=== PATIENT | female | born 1980 | race Caucasian/White ===

== ENCOUNTER 2024-07-19 10:19 | Emergency (ER) | payer OTHER, SELFPAY ==
--- NOTE | ~2024-07-19 | CT_ITS ---
EXAMINATION: CT SOFT TISSUE NECK WITH CONTRAST CLINICAL INFORMATION: Concern for right neck abscess. Pain. COMPARISON: None available. TECHNIQUE: Following the intravenous administration of 100 mL of Omnipaque 350 intravenous contrast, helical imaging was performed in the axial plane with generation of coronal and sagittal reformatted images. This CT examination was performed using dose optimization techniques as appropriate, variously including the following: *Automated exposure control *Adjustment of mA and/or kV according to patient size (this includes techniques or standardized protocols for targeted exams where dose is matched to indication/reason for exam; i.e. extremities or head) *Use of iterative reconstruction technique FINDINGS: Lymph Nodes: -Nonpathologically enlarged likely reactive right level II and V lymph nodes. Carotid Sheath Structures: -Normal. Salivary Glands: -Normal. Mucosal Space: -Subtle peritonsillar crypt abscess on the right measuring approximately 8 x 6 x 9mm (series 4, image 22; series 6, image 36). There is enlargement of the right palatine tonsil and mild thickening of the right hypopharynx at this level. -Left pontine tonsil is normal in size and demonstrates a tonsillith. -No additional mucosal space abnormalities. The epiglottis and aryepiglottic folds, larynx, true vocal cords, and subglottic trachea appear normal. Visceral Space: -Thyroid gland: Diffusely enlarged and heterogeneous. -Visceral space otherwise normal. Retropharangeal Space: - Normal. Parapharyngeal Fat Planes: -Normal. Sail Repair Person Spaces: -Normal. Imaged Intracranial Contents: -No mass effect, edema, or abnormal enhancement. Cortical and dural venous sinuses are patent. The skull base is normal. Globes and Orbits: -Normal. Paranasal Sinuses/Mastoids/Tympanic Spaces: -Diffuse opacification of the paranasal sinuses with sparing of the left frontal sinus, findings in keeping with acute sinusitis in the appropriate clinical setting. Lung Apices and Superior Mediastinal Structures: -Imaged lung apices are clear and superior mediastinal structures are normal. Bony Structures: -No suspicious bone lesions. No fractures. -Normal TM joints. -There is reversal of the normal cervical lordosis which is nonspecific. Other: -partially imaged breast implants. CT/CT soft tissue neck w IV con IMPRESSION: 1. 8 x 6 x 9 mm keren-tonsillar crypt abscess on the right, with mild edema of the right hypopharynx at this level. 2. Pansinus opacification with sparing of the left frontal sinus. These findings likely represent acute pansinusitis in the appropriate clinical setting. 3. Reactive-appearing right level II and level V lymph nodes. 4. Diffuse enlargement and heterogeneity of the thyroid gland. Electronically signed by: Ok Gaitan MD 07/19/2024 04:39 PM [facility] [place]
--- NOTE | ~2024-07-19 | XR_ITS ---
EXAMINATION: XR CHEST CLINICAL INFORMATION: cough COMPARISON: None available. TECHNIQUE: 2 views of the chest were obtained. FINDINGS: No significant abnormality is noted involving the heart, lungs, mediastinum, bony thorax or soft tissues. XR/XR chest 2V IMPRESSION: Unremarkable chest examination. Electronically signed by: Aime Dixon MD 07/19/2024 12:15 PM [facility] [place]
[2024-07-19 11:19] VITALS: BP 161/86; PULSE 92; RESP 18; TEMP 36.8; O2SAT 97; BMI 24.6
--- NOTE | 2024-07-19 11:21 | ED_ITS ---
HPI - General Adult General Chief complaint: Upper Respiratory Symptoms Stated complaint: Cyst in R Side Throat Area Time Seen by Provider: 07/19/24 14:50 Source: patient Mode of arrival: ambulatory Limitations: no limitations History of Present Illness ED Provider: Jemma Lamar PA-C HPI narrative: 43 y/o female with PMH of neck goiter and chronic sinus infection presents with a mass around the right tonsil. States she first noted the mass about 1 1/2 weeks ago. Reports that during coughing episode this morning she noticed blood and pus. States she visualized the area after the coughing episode ceased and noted it to be erythematous. States she has sour, unpleasant taste in her mouth currently. Denies any pain or discomfort in the area. Endorses sinus pain and pressure for the past 1.5 months, noting she was prescribed antibiotics for the around 2023 which provided no relief of her sinus congestion. Denies fever/chills, sore throat, nausea, SOB, chest pain, abdominal pain, diarrhea/constipation. Denies difficult or painful swallowing. Relieving factors: none Exacerbating factors: none Associated symptoms: denies other symptoms Treatments prior to arrival: none Related Data Previous Rx's ?Medication ?Instructions ?Recorded clindamycin HCl 300 mg capsule 300 mg PO TID 7 days #21 caps 07/19/24 Allergies Allergy/AdvReac Type Severity Reaction Status Date / Time amoxicillin [AMOXICILLIN] Allergy Unknown ANAPHYLAXIS Verified 07/19/24 11:21 Review of Systems 2 Constitutional: Constitutional: Reports no additional constitutional complaints, Denies chills, Denies fever(s) and Denies night sweats Eyes: Eyes: Reports no additional eye complaints, Denies blurry vision, Denies change in vision, Denies diplopia, Denies eye discharge, Denies loss of vision and Denies eye pain ENT: Denies dizziness, Reports nasal discharge, Reports sinus pain, Reports sinus pressure and Denies sore throat Comments: coughing blood/pus from throat Cardiovascular: Cardiovascular: Reports no additional cardiovascular complaints, Denies chest pain, Denies lightheadedness, Denies Loss of Consciousness and Denies dyspnea Respiratory: Respiratory: Reports no additional respiratory complaints and Denies dyspnea Gastrointestinal: Gastrointestinal: Reports no additional gastrointestinal complaints, Denies abdominal pain, Denies melena, Denies hematochezia, Denies change in bowel habits and Denies change in stool character Genitourinary: Genitourinary: Denies hematuria, Denies urinary frequency, Denies dysuria, Denies urinary incontinence, Denies urinary hesitancy and Denies urinary urgency Musculoskeletal: Musculoskeletal: Reports no additional musculoskeletal complaints, Denies numbness and Denies tingling Neurologic: Denies dizziness, Denies loss of vision, Denies numbness and Denies tingling Psychiatric: Psychiatric: Reports no additional psychiatric complaints Endocrine: Endocrine: Reports no additional endocrine complaints Hematologic/Lymphatic: Hematologic/Lymphatic: Reports no additional hematologic/lymphatic complaints Allergic/Immunologic: Allergic/Immunologic: Reports no additional allergic/immunologic complaints [facility] Past Medical History Attestation statement: The following information was validated with the patient. Source: old records reviewed and nursing notes reviewed Social History Social History Advance Directives: No Advance Directives Information Provided: Yes Do you have a plan to hurt others: No Plan Physical Exam ED Vital Signs: Vital Signs - 24 hr 07/19/24 11:19 Temperature 98.2 F Pulse Rate 92 Respiratory Rate 18 Blood Pressure 161/86 H Pulse Oximetry 97 Oxygen Delivery Method Room Air BMI result Body Mass Index 24.6 Const General: cooperative, no acute distress, alert and awake Nutritional Appearance: well nourished Orientation/consciousness: patient oriented x3 Limitations: no limitations HENMT Head: Yes normal to inspection and Yes atraumatic Ears: hearing grossly normal bilaterally and external ears normal General nose exam: Normal external nose present, no nasal discharge noted and no epistaxis Face and sinus: Yes normal facial exam, No abrasion and No laceration Mouth: Normal oral and palatal mucosa present, no drooling and no muffled voice Mouth/tongue images: 2 1. small open area actively draining Throat: Yes uvula midline and Yes abnormal tonsil Eyes General: appearance normal, both eyes and all related structures Periorbital: periorbital findings normal Eyelids: Yes eyelids normal Conjunctivae: conjunctivae normal Pupils: Equal, round and reactive pupils present EOM: EOMs intact bilaterally Neck Neck: Yes normal visual inspection, Yes full ROM and Yes no lymphadenopathy Chest Chest palpation & inspection: normal inspection of the chest Resp Effort & Inspection: normal respiratory effort and able to speak in complete sentences GI Inspection: Yes normal to inspection Neuro General: patient oriented x3 and moves all extremities Cranial nerves: Yes Equal, round and reactive pupils present Cognition (Neuro): normal cognition Extrem General: Yes normal to inspection, Yes full ROM and Yes capillary refill normal Psych Appearance: grossly normal Mental Status: mental status grossly normal Affect: normal affect Attitude: cooperative Thought process: Normal thought process present Thought content: Normal thought content present Insight: Good insight present (Psych) Course Course Course Narrative: RME, this is a rapid medical exam performed by Morgan Cortés please refer to primary provider for complete H&P- 43-year-old female presents for evaluation of sore throat. She reports that she was recently treated for a sinus infection with doxycycline. She reports today she has a lump on the right side of her throat that she feels has exudates and she reports ?spitting up blood. ? Plan for chest x-ray, strep swab and viral swabs. Medications Administered Discontinued Medications Generic Name Dose Route Start Last Admin Trade Name Freq PRN Reason Stop Dose Admin Iohexol 60 ml 07/19/24 16:05 07/19/24 16:05 Iohexol 350 Mg/Ml 100 Ml Infus..Btl IV 07/19/24 16:06 60 ml ONCE ONE Administration Medical Decision Making Medical Decision Making MDM Narrative: Patient is a 43 year old assigned female at with a history of thyroid goiter presenting to the emergency department today with a right iaz-tonsilar abscess. Patient's physical exam was as noted in the physical exam portion of this note with an actively draining iza-tonsilar abscess. Patient's blood work was unremarkable. Patient's chest x-ray showed no acute process. CT soft tissue of the neck with contrast showed an 8x6x9 mm iza-tonsilar abscess on the right. I called and spoke to ENT at [facility] who recommended outpatient follow up with clindamycin. I explained my physical exam findings as well as all test results to the patient. I answered all questions asked by the patient. I stressed the importance of the patient taking her medication as directed (either prescribed or as the over the counter packaging recommends). I stressed the importance of the patient following up with her primary care provider and an ENT. I stressed the importance of the patient returning to the emergency department immediately if her symptoms were to worsen or if she were to develop any dizziness, shortness of breath, difficulty breathing, chest pain, blurry vision, loss of vision, nausea, vomiting, abdominal pain, fever, chills, back pain, or any other complaints. Patient verbalized agreement and understanding with this treatment plan and discharge. Differential Diagnosis Differential Diagnoses: The differential diagnosis associated with the presentation includes Iza-tonsillar abscess Strep pharyngitis Sinusitis Admission/Observation Consideration of admission/observation: Escalation of care including admission/observation considered Patient would have been admitted to the hospital had her work up had any findings where hospital admission was appropriate and her clinical presentation warranted hospital admission. Consult Healthcare Provider Management of the patient was discussed with: Network Services Project Manager (ENT at [facility] consulted as noted in the MDM Rationale portion of this note.) Lab Data [facility] Lab Attestation statement: I reviewed the patient's lab results. My interpretation of these results are in the MDM Rationale portion of this note. 07/19/24 15:24 07/19/24 15:24 Labs: Lab Results 07/19/24 07/19/24 Range/Units 12:00 15:24 WBC 10.5 (4.8-10.8) X10*3/uL RBC 4.46 (4.20-5.50) X10*6/uL Hgb 14.1 (12.0-16.0) g/dl Hct 41.2 (37.0-47.0) % MCV 92.4 (80.0-98.0) fL MCH 31.6 (27.0-33.0) pg MCHC 34.2 (31.0-35.0) g/dl RDW 12.4 (11.0-16.0) % Plt Count 313 (160-400) X10*3/uL MPV 9.1 L (9.4-12.3) fL Immature Gran % (Auto) 0.3 (0.0-0.4) % Neut % (Auto) 82.4 H (45-73) % Lymph % (Auto) 12.1 L (20-40) % Jasper % (Auto) 4.6 (2-11) % Eos % (Auto) 0.3 (0-4) % Baso % (Auto) 0.3 (0-2) % Lymph # (Auto) 1.3 (1.2-4.9) X10*3/uL Jasper # (Auto) 0.5 (0.1-1.2) X10*3/uL Eos # (Auto) 0.0 (0.0-0.4) X10*3/uL Baso # (Auto) 0.0 (0.0-0.2) X10*3/uL Abs Immat Gran (auto) 0.03 (0.00-0.03) X10*3/uL Absolute Neuts (auto) 8.7 H (2.0-8.3) x10*3/uL Absolute Nucleated RBC 0.000 (0.0-0.012) X10*3/uL Nucleated RBC % (auto) 0.0 (0.0-0.2) /100WBC ESR 6 (0-20) MM/HR Sodium 142 (135-145) mmol/L Potassium 3.6 (3.3-5.1) mmol/L Chloride 105 (96-108) mmol/L Carbon Dioxide 27 (22-29) mmol/L Anion Gap 14 (12-20) BUN 6 L (9-16) mg/dL Creatinine 0.70 (0.5-1.4) mg/dL Estim Creat Clear Calc 91.3 Estimated GFR > 60 Random Glucose 123 H (60-115) mg/dL Calcium 9.8 (8.4-10.2) mg/dL Total Bilirubin 0.9 (0.0-1.0) mg/dL AST 20 (5-31) U/L ALT 12 (0-31) U/L Alkaline Phosphatase 28 L (39-117) U/L C-Reactive Protein 0.23 (< or = 0.50) mg/dL Total Protein 8.3 H (6.5-8.0) g/dL Albumin 4.4 (3.5-5.0) g/dL Influenza Type A (PCR) NEGATIVE (Negative) Influenza Type B (PCR) NEGATIVE (Negative) RSV RNA Qual (PCR) NEGATIVE (Negative) SARS-CoV-2 RNA (RT-PCR) NEGATIVE (Negative) S. pyogenes GrpA JV Negative (Negative) Independent Interpretation I performed an independent interpretation of an: Plain X-Ray and CT Scan Interpretation: My interpretation is in agreement with the radiologist's impression of these imaging studies. L Report Number: [id number]: Total DLP = 465.00 mGy-cm EXAMINATION: CT SOFT TISSUE NECK WITH CONTRAST CLINICAL INFORMATION: Concern for right neck abscess. Pain. COMPARISON: None available. TECHNIQUE: Following the intravenous administration of 100 mL of Omnipaque 350 intravenous contrast, helical imaging was performed in the axial plane with generation of coronal and sagittal reformatted images. This CT examination was performed using dose optimization techniques as appropriate, variously including the following: *Automated exposure control *Adjustment of mA and/or kV according to patient size (this includes techniques or standardized protocols for targeted exams where dose is matched to indication/reason for exam; i.e. extremities or head) *Use of iterative reconstruction technique FINDINGS: Lymph Nodes: -Nonpathologically enlarged likely reactive right level II and V lymph nodes. Carotid Sheath Structures: -Normal. Salivary Glands: -Normal. Mucosal Space: -Subtle peritonsillar crypt abscess on the right measuring approximately 8 x 6 x 9mm (series 4, image 22; series 6, image 36). There is enlargement of the right palatine tonsil and mild thickening of the right hypopharynx at this level. -Left pontine tonsil is normal in size and demonstrates a tonsillith. -No additional mucosal space abnormalities. The epiglottis and aryepiglottic folds, larynx, true vocal cords, and subglottic trachea appear normal. Visceral Space: -Thyroid gland: Diffusely enlarged and heterogeneous. -Visceral space otherwise normal. Retropharangeal Space: - Normal. Parapharyngeal Fat Planes: -Normal. Fitness Technician Spaces: -Normal. Imaged Intracranial Contents: -No mass effect, edema, or abnormal enhancement. Cortical and dural venous sinuses are patent. The skull base is normal. Globes and Orbits: -Normal. Paranasal Sinuses/Mastoids/Tympanic Spaces: -Diffuse opacification of the paranasal sinuses with sparing of the left frontal sinus, findings in keeping with acute sinusitis in the appropriate clinical setting. Lung Apices and Superior Mediastinal Structures: -Imaged lung apices are clear and superior mediastinal structures are normal. Bony Structures: -No suspicious bone lesions. No fractures. -Normal TM joints. -There is reversal of the normal cervical lordosis which is nonspecific. Other: -partially imaged breast implants. CT/CT soft tissue neck w IV con IMPRESSION: 1. 8 x 6 x 9 mm iza-tonsillar crypt abscess on the right, with mild edema of the right hypopharynx at this level. 2. Pansinus opacification with sparing of the left frontal sinus. These findings likely represent acute pansinusitis in the appropriate clinical setting. 3. Reactive-appearing right level II and level V lymph nodes. 4. Diffuse enlargement and heterogeneity of the thyroid gland. Electronically signed by: Ok Gaitan MD 07/19/2024 04:39 PM EST RP Dictated By: Ok Gaitan MD Signed By: Electronically signed by Ok Gaitan MD 07/19/24 1639 EXAMINATION: XR CHEST CLINICAL INFORMATION: cough COMPARISON: None available. TECHNIQUE: 2 views of the chest were obtained. FINDINGS: No significant abnormality is noted involving the heart, lungs, mediastinum, bony thorax or soft tissues. XR/XR chest 2V IMPRESSION: Unremarkable chest examination. Electronically signed by: Aime Dixon MD 07/19/2024 12:15 PM EST RP Dictated By: Aime Dixon MD Signed By: Electronically signed by Aime Dixon MD 07/19/24 1215 Radiology Impression Discussion of test interpretation with radiology: I have reviewed the radiologist's reading. Prescription Management I considered prescription management with: Antibiotic (patient prescribed an antibiotic for right sided iza-tonsillar abscess) Critical Care Time Critical Care Time Critical Care Time: Yes Total Critical Care Time: 34 Attestation: I spent 34 minutes of Critical Care Time with this patient. This does not include time spent on separately reported billable procedures. Discharge Plan Discharge Clinical Impression: Abscess, peritonsillar, Sinusitis Patient Disposition: Home, Self-Care Instructions: Sinusitis (ED), Peritonsillar Abscess (DC) Additional Instructions: Take your antibiotic as prescribed. DO NOT SWALLOW THE DRAINAGE FROM YOUR ABSCESS. Follow up with your primary care provider and ENT. Return to the emergency department immediately if your symptoms worsen or if you develop any dizziness, shortness of breath, difficulty breathing, chest pain, blurry vision, loss of vision, nausea, vomiting, abdominal pain, fever, chills, back pain, or any other complaints. Prescriptions: New clindamycin HCl 300 mg capsule 300 mg PO TID 7 Days Qty: 21 0RF Referrals: [facility] [Provider Group] (Call to establish and follow up with an ENT specialist.) Teresita Edwards MD [Primary Care Provider] - Stand Alone Forms: Work/School Release Interventions: ED Discharge Assessment Last Done: 07/19/24 17:25 Discharge Date/Time: 07/19/24 17:26 Print Language: Faroese
[2024-07-19 12:18] LABS: IDNOW Serial# 08D9AD1C; Strep A Nucleic Acid Negative (Negative)
[2024-07-19 13:04] LABS: Influenza A PCR NEGATIVE (Negative); Influenza B PCR NEGATIVE (Negative); Resp Syncy Virus RNA Qual PCR NEGATIVE (Negative); SARS COV2 PCR INHOUSE NEGATIVE (Negative)
--- OUTSIDE RECORDS SUMMARY | 2024-07-19 14:26 | XMS_ITS ---
Author Name [facility] Organization Unknown History of Medication Use Medication Directions Dispensed Refills Start Date End Date Stat doxycycline (VIBRAMYCIN) 100 MG capsule Take 1 capsule (100 mg total) by mouth 2 (two) times a day. 06/01/2024 07/04/9999 active triamcinolone (NASACORT AQ) 55 MCG/ACT Aerosol nasal spray 1 spray into each nostril daily. 06/01/2024 07/04/9999 active cetirizine (ZyrTEC) 5 MG tablet Take 5 mg by mouth daily. 06/01/2024 07/04/9999 active EPINEPHrine 0.15 MG/0.15ML IJ auto-injection Inject 0.15 mg into the shoulder, thigh, or buttocks once as needed for allergic reaction. 07/09/2023 active Problems Problem Status Onset Date Problem Type Date of Resoluti on Source Acute non-recurrent maxillary sinusitis active [facility]
[2024-07-19 15:28] LABS: MANUAL DIFF FLAG NO
[2024-07-19 15:30] LABS: Basophils Percent Auto 0.3 % (0-2); Eosinophils Percent Auto 0.3 % (0-4); Hematocrit 41.2 % (37.0-47.0); Hemoglobin 14.1 g/dl (12.0-16.0); Imm Gran Abs Auto 0.03 X10*3/uL (0.00-0.03); Imm Gran Pct Auto 0.3 % (0.0-0.4); Lymphocytes Absolute Auto 1.3 X10*3/uL (1.2-4.9); Lymphocytes Percent Auto 12.1 % (20-40); Mean Corpuscular HGB Conc 34.2 g/dl (31.0-35.0); Mean Corpuscular Hemoglobin 31.6 pg (27.0-33.0); Mean Corpuscular Volume 92.4 fL (80.0-98.0); Mean Platelet Volume 9.1 fL (9.4-12.3); Monocytes Absolute Auto 0.5 X10*3/uL (0.1-1.2); Monocytes Percent Auto 4.6 % (2-11); Neutrophils Absolute Auto 8.7 x10*3/uL (2.0-8.3); Neutrophils Percent Auto 82.4 % (45-73); Platelet Count 313 X10*3/uL (160-400); Red Blood Count 4.46 X10*6/uL (4.20-5.50); Red Cell Distribution Width 12.4 % (11.0-16.0); White Blood Count 10.5 X10*3/uL (4.8-10.8)
[2024-07-19 15:50] LABS: Alanine Aminotransferase 12 U/L (0-31); Albumin Level 4.4 g/dL (3.5-5.0); Anion Gap 14 (12-20); Aspartate Amino Transferase 20 U/L (5-31); Bilirubin Total 0.9 mg/dL (0.0-1.0); Blood Urea Nitrogen 6 mg/dL (9-16); C Reactive Protein 0.23 mg/dL (< or = 0.50); Calcium 9.8 mg/dL (8.4-10.2); Carbon Dioxide 27 mmol/L (22-29); Chloride 105 mmol/L (96-108); Creatinine Clr Calc Pharmacy 91.3; Estimated Glomerular Filt Rate > 60; Glucose Random 123 mg/dL (60-115); Potassium 3.6 mmol/L (3.3-5.1); Sodium 142 mmol/L (135-145); Total Protein 8.3 g/dL (6.5-8.0)
[2024-07-19 16:05] LABS: Alkaline Phosphatase 28 U/L (39-117)
[2024-07-19] MEDS: iohexoL 350 MG/ML 100 ML INFUS..BTL 60 ML IV (16:05)
[2024-07-19 16:13] LABS: Erythrocyte Sedimentation Rate 6 MM/HR (0-20)
[2024-07-19 17:25] VITALS: BP 161/86; PULSE 92; RESP 18; TEMP 36.8; O2SAT 97
== END 2024-07-19 17:26 | disposition home or self-care (01) ==
PROVIDERS: Physician Assistant; Physician Assistant Medical; Emergency Provider Student in an Organized Health Care Education/Training Program; PCP Internal Medicine
DX: J36 Peritonsillar abscess (principal); J32.1 Chronic frontal sinusitis; R05.9 Cough, unspecified; M54.2 Cervicalgia; Z03.818 Encounter for observation for suspected exposure to other biological agents ruled out; Z79.899 Other long term (current) drug therapy
CPT/HCPCS: 0241U; 36415; 70491; 71046; 80053; 85025; 85652; 86140; 87651; 99282; 99284; Q9967

== ENCOUNTER → 2024-07-19 11:21 | Outpatient (BNV) | payer OTHER, SELFPAY | PROVIDERS: PCP Internal Medicine; Visit Provider Radiology Diagnostic Radiology | DX: R05.9 Cough, unspecified (principal); R22.1 Localized swelling, mass and lump, neck; J36 Peritonsillar abscess | CPT/HCPCS: 70491; 71046 ==